=== PATIENT | male | born 1990 | race Caucasian/White ===

== ENCOUNTER 2017-01-09 10:43 | Emergency (ER) | payer OTHER ==
[2017-01-09 11:03] VITALS: BP 115/83
[2017-01-09] MEDS ORDERED: HYDROmorphone 0.5 MG/0.5 ML Syringe IVPUSH ONE (11:26)
[2017-01-09] MEDS ORDERED: Sodium Chloride 0.9% 1,000 ML IV ONE (11:26)
--- NOTE | 2017-01-09 11:32 | EDM.PDOC ---
ED HPI GENERAL MEDICAL PROBLEM - General Chief Complaint: Abdominal Pain Stated Complaint: ABDOMINAL PAIN Time Seen by Provider: 01/09/17 11:09 Source of Information: Reports: Patient History Limitations: Reports: No Limitations - History of Present Illness INITIAL COMMENTS - FREE TEXT/NARRATIVE: Patient is a 26-year-old male presents ED complaining of periumbilical abdominal pain. Patient states it started approximately one week and has progressively got worse over the course. As of recent he was cleaning his belly button out with a Q-tip and noticed some blood present. He denies any recent trauma that may have precipitated this. Nor is any increased swelling, redness, or increased warmth. He has no history of abscesses to his belly button. He denies any abdominal surgery recently. Denies fever/chills, nausea/vomiting, pain with urination, diarrhea, blood in stool, or any additional complaints. Abdominal Pain Score (Numeric/FACES): 6 - Related Data Allergies Allergy/AdvReac Type Severity Reaction Status Date / Time bee stings Allergy Anaphylactic Uncoded 01/09/17 11:00 Shock Home Meds: Home Meds Multivitamin [Txa-Ubacde-Qgxuy] 1 tab PO DAILY 07/28/14 [History] Ciprofloxacin HCl [Cipro] 500 mg PO BID #20 tablet 12/21/14 [Rx] Fish Oil/[place]-3 Fatty Acids [Fish Oil] 1 gm PO DAILY 12/21/14 [History] Doxycycline [Vibramycin] 100 mg PO Q12HR #20 cap 01/09/17 [Rx] Past Medical History - Past Health History Medical/Surgical History: Denies Medical/Surgical History Social & Family History - Tobacco Use Smoking Status *Q: Never Smoker Years of Tobacco use: 1 Second Hand Smoke Exposure: No - Alcohol Use Days Per Week of Alcohol Use: 1 Number of Drinks Per Day: 3 Total Drinks Per Week: 3 - Recreational Drug Use Recreational Drug Use: No ED ROS GENERAL - Review of Systems Review Of Systems: See Below Constitutional: Reports: No Symptoms Respiratory: Reports: No Symptoms Cardiovascular: Reports: No Symptoms GI/Abdominal: Reports: Abdominal Pain. Denies: Constipation, Diarrhea, Nausea, Vomiting : Reports: No Symptoms Musculoskeletal: Reports: No Symptoms Skin: Reports: Other (bloody foul smelling discharge from his belly button for almost 1 wk. ) Neurological: Reports: No Symptoms ED EXAM, GI/ABD - Physical Exam Exam: See Below Exam Limited By: No Limitations General Appearance: Alert, WD/WN, No Apparent Distress Ears: Hearing Grossly Normal Nose: Normal Inspection Throat/Mouth: Normal Voice, No Airway Compromise Neck: Normal Inspection, Supple Respiratory/Chest: No Respiratory Distress, Lungs Clear, Normal Breath Sounds, Chest Non-Tender Cardiovascular: Normal Peripheral Pulses, Regular Rate, Rhythm GI/Abdominal Exam: Normal Bowel Sounds, Soft, No Organomegaly, No Distention, Tender (to the periumbilical region. Bloody foul smelling discharge from his belly button. No increased redness, swelling, or increased warmth noted.) Course - Vital Signs Last Recorded V/S: Last Vital Signs Temp 98.0 F 01/09/17 11:00 Pulse 67 01/09/17 11:00 Resp 16 01/09/17 11:00 BP 115/83 01/09/17 11:00 Pulse Ox 99 01/09/17 11:00 - Orders/Labs/Meds Orders: Active Orders 24 hr Category Date Time Status Peripheral IV Care [RC] . DIRECTED Care 01/09/17 11:25 Active Abdomen Pelvis w Cont [CT] Stat Exams 01/09/17 11:25 Taken Peripheral IV Insertion Adult [OM.PC] Stat Oth 01/09/17 11:25 Ordered Labs: Laboratory Tests 01/09/17 01/09/17 01/09/17 Range/Units 12:00 12:00 13:30 WBC 6.03 (4.23-9.07) K/mm3 RBC 5.02 (4.63-6.08) M/mm3 Hgb 15.3 (13.7-17.5) gm/L Hct 43.9 (40.1-51.0) % MCV 87.5 (79.0-92.2) fl MCH 30.5 (25.7-32.2) pg MCHC 34.9 (32.2-35.5) g/dl RDW Std Deviation 39.3 (35.1-43.9) fL Plt Count 233 (163-337) K/mm3 MPV 11.4 (9.4-12.3) fl Neut % (Auto) 54.9 (34.0-67.9) % Lymph % (Auto) 30.0 (21.8-53.1) % Terry % (Auto) 11.9 (5.3-12.2) % Eos % (Auto) 2.7 (0.8-7.0) Baso % (Auto) 0.5 (0.1-1.2) % Neut # (Auto) 3.31 (1.78-5.38) K/mm3 Lymph # (Auto) 1.81 (1.32-3.57) K/mm3 Terry # (Auto) 0.72 (0.30-0.82) K/mm3 Eos # (Auto) 0.16 (0.04-0.54) K/mm3 Baso # (Auto) 0.03 (0.01-0.08) K/mm3 Sodium 140 (136-145) mEq/L Potassium 4.1 (3.5-5.1) mEq/L Chloride 106 (98-107) mEq/L Carbon Dioxide 24 (21-32) mEq/L Anion Gap 14.1 (5-15) BUN 16 (7-18) mg/dL Creatinine 0.8 (0.7-1.3) mg/dL Est Cr Clr Drug Dosing 147.01 mL/min Estimated GFR (MDRD) > 60 (>60) mL/min BUN/Creatinine Ratio 20.0 H (14-18) Glucose 95 (74-106) mg/dL Calcium 8.9 (8.5-10.1) mg/dL Total Bilirubin 0.5 (0.2-1.0) mg/dL AST 22 (15-37) U/L ALT 45 (16-63) U/L Alkaline Phosphatase 60 (46-116) U/L C-Reactive Protein 0.6 (<1.0) mg/dL Total Protein 7.7 (6.4-8.2) g/dl Albumin 4.0 (3.4-5.0) g/dl Globulin 3.7 gm/dL Albumin/Globulin Ratio 1.1 (1-2) Urine Color Yellow (Yellow) Urine Appearance Slt cloudy H (Clear) Urine pH 6.0 (5.0-8.0) Ur Specific [place] 1.020 (1.005-1.030) Urine Protein Negative (Negative) Urine Glucose (UA) Negative (Negative) Urine Ketones Negative (Negative) Urine Occult Blood Negative (Negative) Urine Nitrite Negative (Negative) Urine Bilirubin Negative (Negative) Urine Urobilinogen 0.2 (0.2-1.0) Ur Leukocyte Esterase Negative (Negative) Urine RBC Not seen (0-5) /hpf Urine WBC 0-5 (0-5) /hpf Ur Epithelial Cells Not seen (0-5) /hpf Urine Bacteria Few (FEW) /hpf Urine Mucus Many H (FEW) /hpf Meds: Medications Discontinued Medications Generic Name Dose Route Start Last Admin Trade Name Freq PRN Reason Stop Dose Admin Diatrizoate Meglum/Diatrizoate Sod 90 ml 01/09/17 13:08 01/09/17 13:18 Gastrografin 37% PO 01/09/17 13:09 90 ml ONETIME ONE Administration Doxycycline Hyclate 200 mg 01/09/17 13:57 01/09/17 14:12 Vibramycin PO 01/09/17 13:58 200 mg ONETIME ONE Administration Hydromorphone HCl 0.5 mg 01/09/17 11:26 01/09/17 12:05 Dilaudid IVPUSH 01/09/17 11:27 0.5 mg ONETIME ONE Administration Sodium Chloride 1,000 mls @ 999 mls/hr 01/09/17 11:26 01/09/17 12:04 Normal Saline IV 01/09/17 12:26 999 mls/hr ONETIME ONE Administration Iopamidol 125 ml 01/09/17 13:08 01/09/17 13:18 Isovue-300 (61%) IVPUSH 01/09/17 13:09 125 ml ONETIME ONE Administration Sodium Chloride 10 ml 01/09/17 11:25 01/09/17 13:19 Saline Flush FLUSH 10 ml ASDIRECTED PRN Administration Keep Vein Open - Re-Assessments/Exams Free Text/Narrative Re-Assessment/Exam: Offered a few options for the patient. I believe this to be a localized area infection involving the umbilicus. Utilized ultrasound while he ED looking for any pus pockets present which none were found. Patient did have pain with utilization of the probe within his belly button. Tenderness is circumferential around the bellybutton. There is a odor to the bloody discharge present. Unclear etiology. No recent trauma noted. Patient is not toxic appearing vital signs are stable. Offered to start the patient on a oral antibiotic and have him follow-up with his PCP the first part of next week. In addition could obtain blood work, ultrasound, or CT the abdomen and pelvis. Patient has elected to proceed with the latter. IV will be established with normal saline 999 mls per hour, and Dilaudid 0.5 mg IVP. Initial labs and studies include CBC, chem 14, UA, CRP, and CT abdomen and pelvis with IV contrast only. 01/09/17 13:53 Labs reviewed: CBC and chem 14 were essentially normal. CRP is 0.6. UA revealed no concerning findings. CT the abdomen and pelvis impression: No acute findings. Right nephrolithiasis. Will treat for localized infection to the umbilicus. Appeared on examination to be a infection to the base of the umbilicus. Ordered doxycycline 200mg PO. Discharge instructions as documented. Departure - Departure Time of Disposition: 13:58 Disposition: Home, Self-Care 01 Condition: Good Clinical Impression: Skin infection - Discharge Information Prescriptions: Doxycycline [Vibramycin] 100 mg PO Q12HR #20 cap Referrals: PCP,None [Primary Care Provider] - Forms: ED Department Discharge, ED Return to Work/School Form Additional Instructions: Take the full course of doxycycline as prescribed. Utilize Tylenol and ibuprofen in alternating fashion for pain. Apply warm compresses to the affected area 6 times daily and 30 minutes in duration. If draining keep covered. Follow-up with PCP at conclusion of therapy to ensure resolution. Return back to the ED for any new or worsening symptoms. - My Orders Last 24 Hours: My Active Orders 01/09/17 11:25 Peripheral IV Care [RC] . DIRECTED Abdomen Pelvis w Cont [CT] Stat Peripheral IV Insertion Adult [OM.PC] Stat - Assessment/Plan Last 24 Hours: My Active Orders 01/09/17 11:25 Peripheral IV Care [RC] . DIRECTED Abdomen Pelvis w Cont [CT] Stat Peripheral IV Insertion Adult [OM.PC] Stat
[2017-01-09] MEDS: Sodium Chloride 0.9% 10 ML Syringe FLUSH PRN ×2 (12:08→13:19)
[2017-01-09] MEDS ORDERED: Diatrizoate Meglumine/Diatrizoate Sodium 37% 120 ML Bottle PO ONE (13:08)
[2017-01-09] MEDS ORDERED: Iopamidol 612 MG/ML 150 ML Bottle IVPUSH ONE (13:08)
[2017-01-09] MEDS ORDERED: Doxycycline 100 MG Cap PO ONE (13:57)
--- NOTE | 2017-01-11 07:57 | CT ---
CT abdomen and pelvis Technique: Multiple axial sections were obtained from above the dome of the diaphragm inferiorly through the pubic symphysis. Intravenous and oral contrast was utilized. Delayed images were obtained through the pelvis. Comparison: Previous noncontrast CT abdomen and pelvis exam performed as a ureteral stone protocol dated 12/21/14. Findings: Visualized lung bases show nothing acute. Liver shows mild fatty infiltration but no focal abnormality is identified. Spleen appears within normal limits. Adrenal glands show no nodule. Pancreas is within normal limits. Gallbladder shows no calcified gallstones. Kidneys show symmetric contrast enhancement without hydronephrosis. Small nonobstructing stone is noted within the right kidney. This small nonobstructing calculus is stable from prior CT exam. Retrocecal appendix is seen which is normal in size. Aorta shows no aneurysmal dilatation. No retroperitoneal adenopathy or mesenteric abnormalities are seen. No pelvic mass or adenopathy is identified. Delayed images show contrast within the distal ureters and within the bladder. No free fluid or inflammatory change is identified. No bowel dilatation is seen. Scattered small mesenteric lymph nodes are seen which are felt to be within normal limits. Bone window settings were reviewed which appear within normal limits for the patient's age. Impression: 1. Small nonobstructing stone within the right kidney which is stable from prior CT exam. 2. Mild fatty infiltration within the liver. 3. Nothing acute is appreciated on CT study of the abdomen and pelvis. Diagnostic code #2 I agree with preliminary report issued by [facility] ([facility] preliminary report dictated on 01/09/17, 2:48 PM Central Time)
== END 2017-01-09 14:15 | disposition home or self-care (01) ==
LOC: JD.ED 10:43
DX: L08.9 Local infection of the skin and subcutaneous tissue, unspecified (principal); Z79.899 Other long term (current) drug therapy; Z91.030 Bee allergy status
CPT/HCPCS: 36415; 74177; 80053; 81001; 85025; 86140; 96361; 96374; 99284; A9270; J1170; J7040; J7050; Q9963; Q9967

== ENCOUNTER 2017-04-04 05:23 | Emergency (ER) | payer OTHER ==
[2017-04-04 05:39] VITALS: BP 120/93
[2017-04-04] MEDS ORDERED: HYDROmorphone 1 MG/ML Syringe IVPUSH ONE ×2 (05:56→06:41)
[2017-04-04] MEDS ORDERED: Ondansetron 4 MG/2 ML SDV IVPUSH ONE (05:56)
[2017-04-04] MEDS ORDERED: Sodium Chloride 0.9% 1,000 ML IV SCH (06:00)
--- NOTE | 2017-04-04 06:01 | EDM.PDOC ---
<Jeremiah Garcia - Last Filed: 04/04/17 07:40> ED HPI GENERAL MEDICAL PROBLEM - General Chief Complaint: Flank Pain Stated Complaint: RIGHT FLANK PAIN Time Seen by Provider: 04/04/17 05:39 - Related Data Allergies Allergy/AdvReac Type Severity Reaction Status Date / Time bee stings Allergy Anaphylactic Uncoded 04/04/17 05:39 Shock Home Meds: Home Meds Multivitamin [Ekm-Nzejmr-Gcszw] 1 tab PO DAILY 07/28/14 [History] Fish Oil/[place]-3 Fatty Acids [Fish Oil] 1 gm PO DAILY 12/21/14 [History] Tamsulosin HCl [Flomax] 0.4 mg PO DAILY #4 cap.er.24h 04/04/17 [Rx] oxyCODONE HCl/Acetaminophen [Percocet 5-325 mg Tablet] 1 - 2 each PO Q4H PRN # 20 tablet 04/04/17 [Rx] Course - Vital Signs Last Recorded V/S: Last Vital Signs Temp 36.2 C 04/04/17 05:35 Pulse 77 04/04/17 05:35 Resp 18 04/04/17 05:35 BP 120/93 H 04/04/17 05:35 Pulse Ox 99 04/04/17 05:35 - Orders/Labs/Meds Orders: Active Orders 24 hr Category Date Time Status Abdomen Pelvis wo Cont [CT] Stat Exams 04/04/17 06:30 Taken Sodium Chloride 0.9% [Normal Saline] 1,000 ml Med 04/04/17 06:00 Active IV ASDIRECTED Medication Orders Sodium Chloride (Normal Saline) 1,000 mls @ 150 mls/hr IV ASDIRECTED GARRY Last Admin: 04/04/17 06:16 Dose: 150 mls/hr Labs: Laboratory Tests 04/04/17 04/04/17 04/04/17 Range/Units 06:05 06:06 06:06 WBC 8.26 (4.23-9.07) K/mm3 RBC 4.93 (4.63-6.08) M/mm3 Hgb 15.3 (13.7-17.5) gm/L Hct 43.3 (40.1-51.0) % MCV 87.8 (79.0-92.2) fl MCH 31.0 (25.7-32.2) pg MCHC 35.3 (32.2-35.5) g/dl RDW Std Deviation 38.8 (35.1-43.9) fL Plt Count 242 (163-337) K/mm3 MPV 10.2 (9.4-12.3) fl Neutrophils % (Manual) 46 (40-60) % Band Neutrophils % 0 (0-10) % Lymphocytes % (Manual) 49 H (20-40) % Atypical Lymphs % 0 % Monocytes % (Manual) 4 (2-10) % Eosinophils % (Manual) 1 (0.8-7.0) % Basophils % (Manual) 0 L (0.2-1.2) Platelet Estimate Adequate RBC Morph Comment Normal Sodium 142 (136-145) mEq/L Potassium 3.6 (3.5-5.1) mEq/L Chloride 106 (98-107) mEq/L Carbon Dioxide 25 (21-32) mEq/L Anion Gap 14.6 (5-15) BUN 19 H (7-18) mg/dL Creatinine 1.0 (0.7-1.3) mg/dL Est Cr Clr Drug Dosing 113.91 mL/min Estimated GFR (MDRD) > 60 (>60) mL/min BUN/Creatinine Ratio 19.0 H (14-18) Glucose 106 (74-106) mg/dL Calcium 8.9 (8.5-10.1) mg/dL Total Bilirubin 0.4 (0.2-1.0) mg/dL AST 20 (15-37) U/L ALT 31 (16-63) U/L Alkaline Phosphatase 66 (46-116) U/L Total Protein 7.9 (6.4-8.2) g/dl Albumin 4.1 (3.4-5.0) g/dl Globulin 3.8 gm/dL Albumin/Globulin Ratio 1.1 (1-2) Urine Color Yellow (Yellow) Urine Appearance Slt cloudy H (Clear) Urine pH 5.5 (5.0-8.0) Ur Specific [place] > or = 1.030 (1.005-1.030) Urine Protein Trace H (Negative) Urine Glucose (UA) Negative (Negative) Urine Ketones Negative (Negative) Urine Occult Blood 3+ H (Negative) Urine Nitrite Negative (Negative) Urine Bilirubin 1+ H (Negative) Urine Urobilinogen 0.2 (0.2-1.0) Ur Leukocyte Esterase Negative (Negative) Urine RBC 20-30 H (0-5) /hpf Urine WBC 0-5 (0-5) /hpf Ur Epithelial Cells Not seen (0-5) /hpf Urine Bacteria Few (FEW) /hpf Urine Mucus Many H (FEW) /hpf Meds: Medications Generic Name Dose Route Start Last Admin Trade Name Freq PRN Reason Stop Dose Admin Sodium Chloride 1,000 mls @ 150 mls/hr 04/04/17 06:00 04/04/17 06:16 Normal Saline IV 150 mls/hr ASDIRECTED GARRY Administration Discontinued Medications Generic Name Dose Route Start Last Admin Trade Name Freq PRN Reason Stop Dose Admin Fentanyl 50 mcg 04/04/17 07:42 Sublimaze IVPUSH 04/04/17 07:43 ONETIME ONE Hydromorphone HCl 1 mg 04/04/17 05:56 04/04/17 06:18 Dilaudid IVPUSH 04/04/17 05:57 1 mg ONETIME ONE Administration Hydromorphone HCl 1 mg 04/04/17 06:41 04/04/17 06:46 Dilaudid IVPUSH 04/04/17 06:42 1 mg ONETIME ONE Administration Ketorolac Tromethamine 30 mg 04/04/17 07:01 04/04/17 07:08 Toradol IVPUSH 04/04/17 07:02 30 mg ONETIME STA Administration Ondansetron HCl 4 mg 04/04/17 05:56 04/04/17 06:16 Zofran IVPUSH 04/04/17 05:57 4 mg ONETIME ONE Administration Tamsulosin HCl 0.4 mg 04/04/17 07:02 04/04/17 07:10 Flomax PO 04/04/17 07:03 0.4 mg ONETIME ONE Administration - Re-Assessments/Exams Free Text/Narrative Re-Assessment/Exam: 04/04/17 07:40 care has been assumed from Dr. Romano at change of shift. CT of the abdomen and pelvis is now been completed. It reveals a normal-appearing liver spleen pancreas and small and large bowels. It is moderate hydronephrosis of the right kidney in comparison to the left. There is moderate dilatation of the entire ureter on the right side down to the UVJ where there is a partially 2.6 mm stone wedged in this area. Patient is still having pain which she reports as 7-8 out of 10. No further nausea or vomiting. We'll give him fentanyl 50 g IV to further alleviate pain. Plan will be to discharge him home on Percocet 5/325 milligram tablets one or 2 every 4 hours as needed for pain relief. Note will also be provided to excuse him from the workplace today and tomorrow. Departure - Departure Disposition: Home, Self-Care 01 Condition: Fair Clinical Impression: Kidney stone on right side - Discharge Information Prescriptions: oxyCODONE HCl/Acetaminophen [Percocet 5-325 mg Tablet] 1 - 2 each PO Q4H PRN # 20 tablet PRN Reason: pain relief. Tamsulosin HCl [Flomax] 0.4 mg PO DAILY #4 cap.er.24h Referrals: Aidan Lord PA-C [Primary Care Provider] - Forms: ED Department Discharge, ED Return to Work/School Form Additional Instructions: Evaluation in the emergency room today in regards to acute onset of severe right flank and lower abdominal pain. This awoke him from sleep. History of previous kidney stones. Urinalysis done here showed 3+ blood. CT of the abdomen confirms a kidney stone approximately 2.6 mm in size at the lower portion of the ureter where it enters the urinary bladder. Stone has approximately 1/2 inch to travel before with into the urinary bladder and you would be pain free. This is likely to happen within the next 48 hours. Treatment is to drink plenty of fluids. Continue Flomax 0.4 mg once daily. Next tablet would be due tomorrow morning. Percocet tablets 08/26/24 one or 2 every 4-6 hours needed for pain relief. Off work today and tomorrow. Strain urine until stone has identified to the past at which time he would not need any further Flomax. - My Orders Last 24 Hours: My Active Orders 04/04/17 06:00 Sodium Chloride 0.9% [Normal Saline] 1,000 ml IV ASDIRECTED 04/04/17 06:30 Abdomen Pelvis wo Cont [CT] Stat - Assessment/Plan Last 24 Hours: My Active Orders 04/04/17 06:00 Sodium Chloride 0.9% [Normal Saline] 1,000 ml IV ASDIRECTED 04/04/17 06:30 Abdomen Pelvis wo Cont [CT] Stat <Jez Romano - Last Filed: 04/04/17 07:50> ED HPI GENERAL MEDICAL PROBLEM - General Source of Information: Reports: Patient, RN Notes Reviewed, Significant Other ( Girlfriend) History Limitations: Reports: No Limitations - History of Present Illness INITIAL COMMENTS - FREE TEXT/NARRATIVE: The patient states that he was woken with right flank pain radiating to his right groin around 05:10 this morning. He states that he has dysuria, urinary frequency, and urinary urgency. No recent fever. No nausea or vomiting. The patient reports no prior similar symptoms, including when he has had kidney stones in the past. The patient's PCP is Aidan Lord. Right Flank Pain Score (Numeric/FACES): 10 Past Medical History Genitourinary History: Reports: Renal Calculus Endocrine/Metabolic History: Reports: Obesity/BMI 30+ - Past Surgical History HEENT Surgical History: Reports: Oral Surgery ([place] teeth extraction), Tonsillectomy Musculoskeletal Surgical History: Reports: Arthroscopic Knee (bilateral) Social & Family History - Tobacco Use Smoking Status *Q: Never Smoker Years of Tobacco use: 1 Second Hand Smoke Exposure: No - Caffeine Use Caffeine Use: Reports: None - Alcohol Use Alcohol Use History: Yes Days Per Week of Alcohol Use: 1 Number of Drinks Per Day: 3 Total Drinks Per Week: 3 Alcohol Use Frequency: Socially - Recreational Drug Use Recreational Drug Use: No - Living Situation & Occupation Living situation: Reports: Single, with Significant Other (Girlfriend) 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) ED ROS GENERAL - Review of Systems Review Of Systems: See Below Constitutional: Reports: No Symptoms HEENT: Reports: Other (Viral URI symptoms) Respiratory: Reports: No Symptoms Cardiovascular: Reports: No Symptoms Endocrine: Reports: No Symptoms GI/Abdominal: Reports: No Symptoms : Reports: No Symptoms Musculoskeletal: Reports: No Symptoms Skin: Reports: No Symptoms Neurological: Reports: No Symptoms Psychiatric: Reports: No Symptoms Hematologic/Lymphatic: Reports: No Symptoms Immunologic: Reports: No Symptoms ED EXAM, RENAL/ - Physical Exam Exam: See Below Exam Limited By: No Limitations General Appearance: Alert, WD/WN, Moderate Distress Eye Exam: Bilateral Eye: Normal Inspection Ears: Normal External Exam, Hearing Grossly Normal Nose: Normal Inspection, No Blood Throat/Mouth: Normal Inspection, Normal Lips, Normal Voice, No Airway Compromise Head: Atraumatic, Normocephalic Neck: Normal Inspection, Full Range of Motion Respiratory/Chest: No Respiratory Distress, Lungs Clear, Normal Breath Sounds, No Accessory Muscle Use Cardiovascular: Normal Peripheral Pulses, Regular Rate, Rhythm, No Edema, No Gallop, No JVD, No Murmur, No Rub GI/Abdominal: Normal Bowel Sounds, Soft, No Organomegaly, No Distention, No Abnormal Bruit, No Mass, Tender (Minimal, right lower quadrant. Nontender elsewhere.), Other (Obese) (Male) Exam: Deferred Rectal (Males) Exam: Deferred Back Exam: Normal Inspection, Full Range of Motion, CVA Tenderness (R) (Severe) . No: CVA Tenderness (L) Extremities: Normal Inspection, Normal Range of Motion, No Pedal Edema, Normal Capillary Refill Neurological: Alert, Oriented, Normal Cognition, No Motor/Sensory Deficits Psychiatric: Normal Affect Skin Exam: Warm, Dry, Intact, Normal Color, No Rash Course - Orders/Labs/Meds Labs: Laboratory Tests 04/04/17 04/04/17 04/04/17 Range/Units 06:05 06:06 06:06 WBC 8.26 (4.23-9.07) K/mm3 RBC 4.93 (4.63-6.08) M/mm3 Hgb 15.3 (13.7-17.5) gm/L Hct 43.3 (40.1-51.0) % MCV 87.8 (79.0-92.2) fl MCH 31.0 (25.7-32.2) pg MCHC 35.3 (32.2-35.5) g/dl RDW Std Deviation 38.8 (35.1-43.9) fL Plt Count 242 (163-337) K/mm3 MPV 10.2 (9.4-12.3) fl Neutrophils % (Manual) 46 (40-60) % Band Neutrophils % 0 (0-10) % Lymphocytes % (Manual) 49 H (20-40) % Atypical Lymphs % 0 % Monocytes % (Manual) 4 (2-10) % Eosinophils % (Manual) 1 (0.8-7.0) % Basophils % (Manual) 0 L (0.2-1.2) Platelet Estimate Adequate RBC Morph Comment Normal Sodium 142 (136-145) mEq/L Potassium 3.6 (3.5-5.1) mEq/L Chloride 106 (98-107) mEq/L Carbon Dioxide 25 (21-32) mEq/L Anion Gap 14.6 (5-15) BUN 19 H (7-18) mg/dL Creatinine 1.0 (0.7-1.3) mg/dL Est Cr Clr Drug Dosing 113.91 mL/min Estimated GFR (MDRD) > 60 (>60) mL/min BUN/Creatinine Ratio 19.0 H (14-18) Glucose 106 (74-106) mg/dL Calcium 8.9 (8.5-10.1) mg/dL Total Bilirubin 0.4 (0.2-1.0) mg/dL AST 20 (15-37) U/L ALT 31 (16-63) U/L Alkaline Phosphatase 66 (46-116) U/L Total Protein 7.9 (6.4-8.2) g/dl Albumin 4.1 (3.4-5.0) g/dl Globulin 3.8 gm/dL Albumin/Globulin Ratio 1.1 (1-2) Urine Color Yellow (Yellow) Urine Appearance Slt cloudy H (Clear) Urine pH 5.5 (5.0-8.0) Ur Specific [place] > or = 1.030 (1.005-1.030) Urine Protein Trace H (Negative) Urine Glucose (UA) Negative (Negative) Urine Ketones Negative (Negative) Urine Occult Blood 3+ H (Negative) Urine Nitrite Negative (Negative) Urine Bilirubin 1+ H (Negative) Urine Urobilinogen 0.2 (0.2-1.0) Ur Leukocyte Esterase Negative (Negative) Urine RBC 20-30 H (0-5) /hpf Urine WBC 0-5 (0-5) /hpf Ur Epithelial Cells Not seen (0-5) /hpf Urine Bacteria Few (FEW) /hpf Urine Mucus Many H (FEW) /hpf - Re-Assessments/Exams Free Text/Narrative Re-Assessment/Exam: 04/04/17 06:32 The patient's urinalysis is nitrate negative, leukocyte esterase negative, 3+ occult blood with 20-30 RBCs, 0-5 WBCs, and few bacteria. This is consistent with a kidney stone, and not really consistent with a UTI. I have ordered a CT scan of the abdomen and pelvis without IV contrast, to evaluate for kidney stone. 04/04/17 07:[address] Garcia, and care of the patient turned over to him at this time, for change of shift. Results of the CT scan are pending. Departure - Departure Time of Disposition: 07:50
[2017-04-04] MEDS ORDERED: Ketorolac 30 MG/ML SDV IVPUSH STA (07:01)
[2017-04-04] MEDS ORDERED: Tamsulosin 0.4 MG Cap.ER PO ONE (07:02)
[2017-04-04] MEDS ORDERED: fentaNYL 100 MCG/2 ML SDV IVPUSH ONE (07:42)
--- NOTE | 2017-04-05 07:53 | CT ---
CT abdomen and pelvis Technique: Multiple axial sections were obtained from above the kidneys inferiorly through the pubic symphysis. Intravenous and oral contrast was not utilized. Study has been performed as a ureteral stone protocol. Comparison: Prior CT abdomen and pelvis exam of 01/09/17. Findings: Right ureter is dilated. This finding is caused by a 2.8 mm obstructing stone within the distal right ureter. This ureteral stone occurs slightly proximal to the UVJ. No renal calculi are seen. No other ureteral stones are seen. Visualized lung bases show nothing acute. Noncontrast appearance of the visualized liver and spleen appear within normal limits. Adrenal glands show no nodule. Pancreas appears within normal limits. Gallbladder contains no calcified gallstones. Aorta shows no aneurysmal dilatation. No retroperitoneal adenopathy or mesenteric abnormalities are seen. Pancreas is within normal limits. Appendix is visualized and appears normal. No pelvic mass or adenopathy is seen. No free fluid or inflammatory changes noted. Bowel gas pattern appears normal. Bone window settings were reviewed which appear within normal limits for the patient's age. Impression: 1. Right ureteral dilatation caused by an obstructing 2.8 mm stone within the distal right ureter slightly proximal to the UVJ. 2. Other normal findings as noted above. Diagnostic code #3 Agree with preliminary report issued by [facility] ([facility] preliminary report dictated on 04/04/17, 8:45 AM Central Time)
== END 2017-04-04 08:40 | disposition home or self-care (01) ==
LOC: JD.ED 05:23
DX: N13.2 Hydronephrosis with renal and ureteral calculous obstruction (principal); Z91.030 Bee allergy status; Z79.899 Other long term (current) drug therapy
CPT/HCPCS: 36415; 74176; 80053; 81001; 85025; 96361; 96374; 96375; 99284; A9270; J1170; J1885; J2405; J3010; J7040

== ENCOUNTER 2017-06-17 10:19 | Day surgery (SDC) | payer OTHER ==
--- NOTE | 2017-06-16 09:35 | PCM.PREANE ---
Preanesthetic Assessment - Anesthesia/Transfusion/Family Hx Intubation History: Unknown - Review of Systems Pulmonary: No Symptoms (asthma) Other: Reports: Thyroid Problems (total thyroidectomy) - Physical Assessment NPO Status Date: 06/16/17 Height: 1.75 m Mental Status: Alert & Oriented x3 - Lab Values: Laboratory Last Values MRSA (PCR) Negative 06/04/17 11:19 - Allergies Allergies/Adverse Reactions: Allergies Allergy/AdvReac Type Severity Reaction Status Date / Time bee stings Allergy Anaphylactic Uncoded 04/04/17 05:39 Shock - Anesthesia Plan Pre-Op Medication Ordered: None - Acknowledgements Anesthesia Type Planned: General Anesthesia Pt an Appropriate Candidate for the Planned Anesthesia: Yes Alternatives and Risks of Anesthesia Discussed w Pt/Guardian: Yes Pt/Guardian Understands and Agrees with Anesthesia Plan: Yes PreAnesthesia Questionnaire - Past Health History Medical/Surgical History: Denies Medical/Surgical History Genitourinary History: Reports: Renal Calculus Musculoskeletal History: Reports: Fracture Endocrine/Metabolic History: Reports: Obesity/BMI 30+ - Past Surgical History HEENT Surgical History: Reports: Oral Surgery ([place] teeth extraction), Tonsillectomy Musculoskeletal Surgical History: Reports: Arthroscopic Knee (bilateral) - SUBSTANCE USE Smoking Status *Q: Never Smoker Second Hand Smoke Exposure: No Days Per Week of Alcohol Use: 1 Number of Drinks Per Day: 3 Total Drinks Per Week: 3 Recreational Drug Use History: No - HOME MEDS Home Medications: Home Meds Multivitamin [Hmh-Gwfuzz-Iewcp] 1 tab PO DAILY 07/28/14 [History] Fish Oil/[place]-3 Fatty Acids [Fish Oil] 1 gm PO DAILY 12/21/14 [History] Tamsulosin HCl [Flomax] 0.4 mg PO DAILY #4 cap.er.24h 04/04/17 [Rx] oxyCODONE HCl/Acetaminophen [Percocet 5-325 mg Tablet] 1 - 2 each PO Q4H PRN # 20 tablet 04/04/17 [Rx] - CURRENT (IN HOUSE) MEDS Current Meds: Current Medications Lactated Ringer's (Ringers, Lactated) 1,000 mls @ 125 mls/hr IV ASDIRECTED GARRY Stop: 06/17/17 23:00 Lidocaine/Sodium Bicarbonate (Buffered Lidocaine 1% In Ns 8.4%) 0.25 ml IDERM ONETIME PRN PRN Reason: Prior to IV Start Stop: 06/17/17 18:00 Sodium Chloride (Saline Flush) 10 ml FLUSH ASDIRECTED PRN PRN Reason: Keep Vein Open Stop: 06/17/17 18:00
[~2017-06-17 10:19] MED LIST: Dexamethasone 4 MG/ML 5 ML MDV ONE; Ketorolac 30 MG/ML SDV ONE; Lactated Ringers 1,000 ML IV SCH; Lactated Ringers 1,000 ML ONE; Lidocaine 1% 4 ML ONE; Lidocaine 1%/Sod Bicarbonate in NS 8.4% 1 ML Syringe IDERM PRN; Midazolam 1 MG/ML 2 ML SDV ONE; Ondansetron 4 MG/2 ML SDV ONE; Propofol 200 MG/20 ML SDV ONE; Sodium Chloride 0.9% 10 ML Syringe FLUSH PRN; ceFAZolin 1 GM Vial ONE; fentaNYL 250 MCG/5 ML SDV ONE
--- NOTE | 2017-06-17 10:59 | PCM.PREANE ---
Preanesthetic Assessment - Procedure Proposed Procedure: Left KVA with partial medial menisectomy - Anesthesia/Transfusion/Family Hx Anesthesia History: Prior Anesthesia Without Reaction Family History of Anesthesia Reaction: No Transfusion History: No Prior Transfusion(s) Intubation History: Unknown - Review of Systems General: No Symptoms Pulmonary: Other (asthma as a kid but has not used an inhaler in years ) Cardiovascular: No Symptoms Gastrointestinal: No Symptoms Neurological: No Symptoms Other: Reports: None - Physical Assessment NPO Status Date: 06/16/17 NPO Status Time: 20:00 O2 Sat by Pulse Oximetry: 95 Respiratory Rate: 16 Vital Signs: Last Vital Signs Temp 36.8 C 06/17/17 10:30 Pulse 72 06/17/17 10:30 Resp 16 06/17/17 10:30 BP 111/66 06/17/17 10:30 Pulse Ox 95 06/17/17 10:30 Height: 1.75 m Weight: 112.491 kg ASA Class: 2 Mental Status: Alert & Oriented x3 Airway Class: Mallampati = 1 Dentition: Reports: Normal Dentition Thyro-Mental Finger Breadths: 3 Mouth Opening Finger Breadths: 3 ROM/Head Extension: Full Lungs: Clear to Auscultation, Normal Respiratory Effort Cardiovascular: Regular Rate, Regular Rhythm - Lab Values: Laboratory Last Values MRSA (PCR) Negative 06/04/17 11:19 - Allergies Allergies/Adverse Reactions: Allergies Allergy/AdvReac Type Severity Reaction Status Date / Time bee stings Allergy Anaphylactic Uncoded 06/16/17 13:37 Shock - Blood Blood Available: No Product(s) Available: None - Anesthesia Plan Pre-Op Medication Ordered: None - Acknowledgements Anesthesia Type Planned: General Anesthesia (LMA ) Pt an Appropriate Candidate for the Planned Anesthesia: Yes Alternatives and Risks of Anesthesia Discussed w Pt/Guardian: Yes Pt/Guardian Understands and Agrees with Anesthesia Plan: Yes PreAnesthesia Questionnaire - Past Health History Medical/Surgical History: Denies Medical/Surgical History Cardiovascular History: Reports: None Respiratory History: Reports: Asthma Gastrointestinal History: Reports: Celiac Disease Genitourinary History: Reports: None, Renal Calculus 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 Musculoskeletal History: Reports: Fracture, Other (See Below) Other Musculoskeletal History: left knee meniscus tear Neurological History: Reports: None Psychiatric History: Reports: None Endocrine/Metabolic History: Reports: Obesity/BMI 30+ Hematologic History: Reports: None Immunologic History: Reports: None Oncologic (Cancer) History: Reports: None Dermatologic History: Reports: None - Past Surgical History Head Surgeries/Procedures: Reports: None HEENT Surgical History: Reports: Oral Surgery, Tonsillectomy Cardiovascular Surgical History: Reports: None Respiratory Surgical History: Reports: None GI Surgical History: Reports: None Female Surgical History: Reports: None Male Surgical History: Reports: None Endocrine Surgical History: Reports: None Neurological Surgical History: Reports: None Musculoskeletal Surgical History: Reports: Arthroscopic Knee Oncologic Surgical History: Reports: None Dermatological Surgical History: Reports: None - SUBSTANCE USE Smoking Status *Q: Current Some Day Smoker Tobacco Use Within Last Twelve Months: Snuff/Dip (last used 2 days ago) Second Hand Smoke Exposure: No Days Per Week of Alcohol Use: 1 Number of Drinks Per Day: 3 Total Drinks Per Week: 3 Recreational Drug Use History: No - HOME MEDS Home Medications: Home Meds oxyCODONE HCl/Acetaminophen [Percocet 5-325 mg Tablet] 1 - 2 each PO Q4H PRN # 20 tablet 04/04/17 [Rx] Acetaminophen/HYDROcodone [[place] 325-5 MG] 1 - 2 tab PO Q6H PRN #30 tablet 06/17 [Rx] Aspirin 325 mg PO BID #84 tab 06/17/17 [Rx] - CURRENT (IN HOUSE) MEDS Current Meds: Current Medications Lactated Ringer's (Ringers, Lactated) 1,000 mls @ 125 mls/hr IV ASDIRECTED GARRY Stop: 06/17/17 23:00 Lidocaine/Sodium Bicarbonate (Buffered Lidocaine 1% In Ns 8.4%) 0.25 ml IDERM ONETIME PRN PRN Reason: Prior to IV Start Stop: 06/17/17 18:00 Sodium Chloride (Saline Flush) 10 ml FLUSH ASDIRECTED PRN PRN Reason: Keep Vein Open Stop: 06/17/17 18:00 Discontinued Medications Cefazolin Sodium (Ancef) Confirm Administered Dose 2 gm .ROUTE .STK-MED ONE Stop: 06/17/17 07:20 Dexamethasone (Dexamethasone) Confirm Administered Dose 20 mg .ROUTE .STK-MED ONE Stop: 06/17/17 07:20 Fentanyl (Sublimaze) Confirm Administered Dose 250 mcg .ROUTE .STK-MED ONE Stop: 06/17/17 07:20 Lidocaine HCl (Xylocaine-Mpf 1%) Confirm Administered Dose 4 mls @ as directed .ROUTE .STK-MED ONE Stop: 06/17/17 07:20 Lactated Ringer's (Ringers, Lactated) Confirm Administered Dose 1,000 mls @ as directed .ROUTE .STK-MED ONE Stop: 06/17/17 07:20 Ketorolac Tromethamine (Toradol) Confirm Administered Dose 30 mg .ROUTE .ST- MED ONE Stop: 06/17/17 07:20 Midazolam HCl (Versed 1 Mg/Ml) Confirm Administered Dose 2 mg .ROUTE .STK-MED ONE Stop: 06/17/17 07:20 Ondansetron HCl (Zofran) Confirm Administered Dose 4 mg .ROUTE .STK-MED ONE Stop: 06/17/17 07:20 Propofol (Diprivan 20 Ml) Confirm Administered Dose 200 mg .ROUTE .STK-MED ONE Stop: 06/17/17 07:20
[2017-06-17] MEDS ORDERED: Bupivacaine 0.25% 10 ML SDV ONE (11:48)
[2017-06-17] MEDS ORDERED: Ondansetron 4 MG/2 ML SDV IVPUSH PRN (12:13)
[2017-06-17] MEDS ORDERED: diphenhydrAMINE 50 MG/ML SDV IVPUSH PRN (12:13)
[2017-06-17] MEDS ORDERED: ePHEDrine 50 MG/ML SDV IVPUSH PRN (12:13)
[2017-06-17] MEDS ORDERED: Midazolam 1 MG/ML 2 ML SDV IVPUSH PRN (12:13)
[2017-06-17] MEDS ORDERED: Propofol 200 MG/20 ML SDV ONE (12:18)
[2017-06-17] MEDS ORDERED: EPINEPHrine 1 MG/ML 30 ML MDV ONE (12:30)
--- NOTE | 2017-06-17 13:16 | PCM.POSTAN ---
POST ANESTHESIA ASSESSMENT - MENTAL STATUS Mental Status: Alert - VITAL SIGNS Pulse Rate: 97 SaO2: 97 (2LPM nasal cannula) Resp Rate: 19 Blood Pressure: 105/52 Temperature: 36.8 C - RESPIRATORY Respiratory Status: Respiratory Rate WNL, Airway Patent, O2 Saturation Stable, Supplemental Oxygen - CARDIOVASCULAR CV Status: Pulse Rate WNL, Blood Pressure Stable - GASTROINTESTINAL GI Status: No Symptoms - POST OP HYDRATION Hydration Status: Adequate & Stable
[2017-06-17] MEDS: fentaNYL 100 MCG/2 ML SDV IVPUSH PRN ×2 (13:23→13:39)
[2017-06-17] MEDS ORDERED: HYDROmorphone 0.5 MG/0.5 ML Syringe IVPUSH PRN (13:41)
[2017-06-17] MEDS ORDERED: Acetaminophen/HYDROcodone 325-5 MG Tab PO PRN (13:43)
[2017-06-17] MEDS ORDERED: Albuterol 0.083% 2.5 MG/3 ML Neb Soln NEB STA (14:10)
--- NOTE | 2017-06-17 14:19 | PCM48HPAN ---
Post Anesthesia Note - EVALUATION WITHIN 48HRS OF ANESTHETIC Vital Signs in Normal Range: Yes Patient Participated in Evaluation: Yes Respiratory Function Stable: Yes Airway Patent: Yes Cardiovascular Function Stable: Yes Hydration Status Stable: Yes Pain Control Satisfactory: Yes Nausea and Vomiting Control Satisfactory: Yes Mental Status Recovered: Yes
[2017-06-17 15:42] VITALS: BP 110/75
--- NOTE | 2017-06-20 21:40 | PCM.OPNOTE ---
- General Post-Op/Procedure Note Date of Surgery/Procedure: 06/17/17 Operative Procedure(s): left knee video arthroscopy with partial medial meniscectomy Pre Op Diagnosis: left knee medial meniscus tear Post-Op Diagnosis: Same Anesthesia Technique: General LMA, Local Primary Surgeon: Lauri Henry Anesthesia Provider: Shreya Solares Verification Clerk: Maria Luisa Cowan in mLs: 5 Complications: None Condition: Good
--- NOTE | 2017-06-20 22:36 | OR ---
DATE OF OPERATION: 06/17/2017 SURGEON: Lauri Henry MD OPERATION PERFORMED: Left knee video arthroscopy with partial medial meniscectomy. PREOPERATIVE DIAGNOSIS: Left knee medial meniscus tear. POSTOPERATIVE DIAGNOSIS: Left knee medial meniscus tear. ANESTHESIA TECHNIQUE: General LMA with local. ANESTHESIA PROVIDER: Shreya Solares CRNA. LAST PULLER: Maria Luisa Cowan PA-C ESTIMATED BLOOD LOSS: 5 mL. COMPLICATIONS: None. CONDITION: Stable. DESCRIPTION OF PROCEDURE: The patient was identified in the preop holding area. Proper site was marked and identified by the surgeon. The patient was taken back to the operating theater, where after adequate anesthesia, the patient's right lower extremity was placed in a well leg cradenas. The left lower extremity had a nonsterile tourniquet applied and was then placed in a C-clamp cardenas. The foot of the bed was then lowered. Left lower extremity was then sterilely prepped and draped in the usual sterile fashion. OR time-out was performed. The patient received 2 g IV Ancef. The left lower extremity was then exsanguinated and tourniquet was insufflated to 250 mmHg. Standard anterior lateral portal incision was made and the scope trocar was introduced. Patellofemoral joint showed only grade 1 chondromalacia. There were no loose or foreign bodies noted. Attention was turned to the medial compartment. Anterior medial portal was created with the use of a spinal needle. At this time, a direct visualization of the medial compartment showed grade 1/2 chondromalacia of the femoral condyle as well as grade 3 chondromalacia of the very posterior portion of the medial tibial plateau. The patient was noted to have degenerative tear of the posterior third of the horn of the medial meniscus. At this time, the posterior third of the medial meniscus was then removed almost all the way to the attachment of the capsule as it was grossly unstable with degenerative tear. At this time, all excess fibers and loose fibers were removed. At this time, attention was turned to the notch. The patient was found have an intact ACL on the notch. Lateral compartment showed grade 1 chondromalacia, but otherwise no meniscal tear. At this time, excess saline was drained from the knee. A 3-0 nylon simple suture was used for closure of the skin and the patient had a sterile soft dressing applied. The patient tolerated the procedure well and sent to PACU in stable condition. ANESTHESIA: MMODAL /[id number]
== END 2017-06-17 15:33 | disposition home or self-care (01) ==
LOC: JD.SDS 10:19
PROVIDERS: ATTEND Orthopaedic Surgery
DX: S83.242A Other tear of medial meniscus, current injury, left knee, initial encounter (principal); Z91.030 Bee allergy status; Z79.899 Other long term (current) drug therapy; Z72.0 Tobacco use; X58.XXXA Exposure to other specified factors, initial encounter
CPT/HCPCS: 29881; 87641; 94640; A9270; J0171; J0690; J1100; J1170; J1885; J2250; J2405; J3010; J7120; J2704

== ENCOUNTER 2017-12-12 16:59 | Emergency (ER) | payer OTHER ==
[2017-12-12 17:14] VITALS: BP 137/88
--- NOTE | 2017-12-12 18:02 | EDM.PDOC ---
ED HPI GENERAL MEDICAL PROBLEM - General Chief Complaint: Lower Extremity Injury/Pain Stated Complaint: ROLLED OVER ON RIGHT FOOT/SWOLLEN Time Seen by Provider: 12/12/17 17:39 Source of Information: Reports: Patient History Limitations: Reports: No Limitations - History of Present Illness INITIAL COMMENTS - FREE TEXT/NARRATIVE: 27-year-old male presents for evaluation and treatment of an injury to the right ankle. Patient reports yesterday he was playing softball when he rolled his ankle. States that he inverted the right ankle. Reports hearing a pop. Since then he has had pain with ambulation is appreciated swelling and bruising to the right ankle. Primarily has pain to the right lateral malleolus. Reports he has had numerous ankle sprains in the past. Has been using crutches he had at home to help with ambulation. Duration: Day(s): (2) Right Ankle Pain Score (Numeric/FACES): 4 - Related Data Allergies Allergy/AdvReac Type Severity Reaction Status Date / Time bee stings Allergy Anaphylactic Uncoded 06/17/17 10:58 Shock Home Meds: Home Meds Fish Oil/[place]-3 Fatty Acids [Fish Oil] 1 cap PO DAILY 12/12/17 [History] Multivitamin [Multivitamins] 1 tab PO DAILY 12/12/17 [History] Past Medical History - Past Health History Medical/Surgical History: Denies Medical/Surgical History Cardiovascular History: Reports: None Respiratory History: Reports: Asthma, Sleep Apnea Gastrointestinal History: Reports: Celiac Disease Genitourinary History: Reports: Renal Calculus [employer]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 Musculoskeletal History: Reports: Fracture Other Musculoskeletal History: Thumb, arm, fingers Neurological History: Reports: Concussion Psychiatric History: Reports: None Endocrine/Metabolic History: Reports: Obesity/BMI 30+ Hematologic History: Reports: None Immunologic History: Reports: None Oncologic (Cancer) History: Reports: None Dermatologic History: Reports: None - Past Surgical History Head Surgeries/Procedures: Reports: None HEENT Surgical History: Reports: Oral Surgery, Tonsillectomy Cardiovascular Surgical History: Reports: None Endocrine Surgical History: Reports: None Musculoskeletal Surgical History: Reports: Other (See Below) Other Musculoskeletal Surgeries/Procedures:: ACL, MCL, Mensiscus repairs Oncologic Surgical History: Reports: None Social & Family History - Tobacco Use Used Tobacco, but Quit: No Second Hand Smoke Exposure: No - Caffeine Use Caffeine Use: Reports: Soda - Alcohol Use Days Per Week of Alcohol Use: 1 Number of Drinks Per Day: 2 Total Drinks Per Week: 2 - Recreational Drug Use Recreational Drug Use: No - Living Situation & Occupation Living situation: Reports: Single, with Significant Other (Girlfriend) 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 Denies: Wound Neurological: Denies: Numbness, Tingling ED EXAM, GENERAL - Physical Exam Exam: See Below Exam Limited By: No Limitations General Appearance: Alert, WD/WN, No Apparent Distress Respiratory/Chest: No Respiratory Distress Cardiovascular: Normal Peripheral Pulses, Regular Rate, Rhythm Peripheral Pulses: 2+: Posterior Tibial (L), Posterior Tibial (R), Dorsalis Pedis (L), Dorsalis Pedis (R) Extremities: Normal Capillary Refill, Limited Range of Motion (pain with dorsiflexion, plantarflexion, inversion and eversion), Other (tenderness to the anterior talofibular ligament and posterior talofibular ligament; no tenderness to the dorsal right foot). No: Increased Warmth Neurological: Alert, Oriented, Normal Cognition Psychiatric: Normal Affect, Normal Mood Skin Exam: Warm, Dry, Normal Color, Ecchymosis (right lateral malleolus distal ) . No: Increased Warmth Course - Vital Signs Last Recorded V/S: Last Vital Signs Temp 98.2 F 12/12/17 17:11 Pulse 106 H 12/12/17 17:11 Resp 20 12/12/17 17:11 BP 137/88 12/12/17 17:11 Pulse Ox 100 12/12/17 17:11 - Radiology Interpretation Free Text/Narrative:: X-ray of the right ankle shows no acute fractures or dislocations. - Re-Assessments/Exams Free Text/Narrative Re-Assessment/Exam: 12/12/17 17:59 Reviewed the x-ray results with the patient. Appears to be an ankle sprain. I' ll have him do an Robert bandage, crutches, ice, elevation and follow-up with orthopedics. Discharge instructions as documented. Departure - Departure Time of Disposition: 18:00 Disposition: Home, Self-Care 01 Condition: Good Clinical Impression: Ankle sprain - Discharge Information *PRESCRIPTION DRUG MONITORING PROGRAM REVIEWED*: No *COPY OF PRESCRIPTION DRUG MONITORING REPORT IN PATIENT LAURA: No Instructions: Ankle Sprain, [id number] Referrals: Aidan Lord PA-C [Primary Care Provider] - Lauri Henry MD [Physician] - Forms: ED Department Discharge Additional Instructions: [id number] Tylenol and Motrin as needed for pain. Ice and elevate the ankle as much as you're able to. Crutches and off ankle. Follow-up with orthopedics. This week or early next week. Recommend Dr. Henry at the [facility]. Call [phone] to schedule with him. please return to the ER if your symptoms change or worsen.
--- NOTE | 2017-12-15 09:37 | CR ---
Right ankle: Four views of the right ankle were obtained. Comparison: No prior ankle study. Ankle mortise is symmetric. No fracture, dislocation or other bony abnormality is seen. Impression: 1. No abnormality is seen on right ankle exam. Diagnostic code #1
== END 2017-12-12 18:23 | disposition home or self-care (01) ==
LOC: JD.ED 16:59
DX: S93.401A Sprain of unspecified ligament of right ankle, initial encounter (principal); J45.909 Unspecified asthma, uncomplicated; Y93.64 Activity, baseball; Z91.030 Bee allergy status; X50.1XXA Overexertion from prolonged static or awkward postures, initial encounter
CPT/HCPCS: 73610-26-RT; 73610-RT; 99283

== ENCOUNTER 2019-11-06 19:28 | Emergency (ER) | payer BC, OTHER ==
[2019-11-06 19:44] VITALS: BP 131/92; PULSE 82
[2019-11-06] MEDS ORDERED: cefTRIAXone 2 GM in Sodium Chloride 0.9% 100 ML IV ONE (20:00)
[2019-11-06] MEDS ORDERED: Sodium Chloride 0.9% 10 ML Syringe FLUSH PRN (20:00)
--- NOTE | 2019-11-06 20:05 | EDM.PDOC ---
ED HPI GENERAL MEDICAL PROBLEM - General Chief Complaint: Lower Extremity Injury/Pain Stated Complaint: RIGHT LEG SWOLLEN Time Seen by Provider: 11/06/19 19:43 Source of Information: Reports: Patient, RN Notes Reviewed History Limitations: Reports: No Limitations - History of Present Illness INITIAL COMMENTS - FREE TEXT/NARRATIVE: Patient is a 29-year-old male who presents to the ED for the evaluation of a swollen and reddened right leg. Patient notes he was playing softball Th evening last week, when he slid into second base, and ended up with a very large abrasion on his right lower extremity. This does measure roughly 17 cm x 10 cm in dimension. The area of erythema extends 2 to 3 cm past these borders. He states that he has been cleaning this at home with soapy water, and using triple antibiotic ointment and a bandage for management. 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 He states that it is very painful to bear weight, and also to bend the knee much at all. He did appreciate that the right leg was more swollen than compared to his left leg over the last day or so. He has not complained of any fever/chills, nausea/vomiting/diarrhea, chest pain, shortness of breath/cough. He notes that the wound is weeping a little bit, but does not notice any pus like drainage coming from the wound. Area is very tender to the touch as well. Right Lower Leg Pain Score (Numeric/FACES): 5 - Related Data Allergies Allergy/AdvReac Type Severity Reaction Status Date / Time bee stings Allergy Anaphylactic Uncoded 11/06/19 19:44 Shock Home Meds: Home Meds Fish Oil/[place]-3 Fatty Acids [Fish Oil] 1 cap PO DAILY 12/12/17 [History] Multivitamin [Multivitamins] 1 tab PO DAILY 12/12/17 [History] Doxycycline [Vibramycin] 100 mg PO BID #14 tab 11/06/19 [Rx] Past Medical History Respiratory History: Reports: Asthma, Sleep Apnea Gastrointestinal History: Reports: Celiac Disease Genitourinary History: Reports: Renal Calculus Musculoskeletal History: Reports: Fracture Other Musculoskeletal History: Thumb, arm, fingers Neurological History: Reports: Concussion Endocrine/Metabolic History: Reports: Obesity/BMI 30+ - Past Surgical History HEENT Surgical History: Reports: Oral Surgery, Tonsillectomy Musculoskeletal Surgical History: Reports: Other (See Below) Other Musculoskeletal Surgeries/Procedures:: ACL, MCL, Meniscus repairs Social & Family History - Tobacco Use Smoking Status *Q: Never Smoker - Caffeine Use Caffeine Use: Reports: Soda - Recreational Drug Use Recreational Drug Use: No - Living Situation & Occupation Living situation: Reports: Single, with Significant Other (Girlfriend) 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 ED EXAM, GENERAL - Physical Exam Exam: See Below Exam Limited By: No Limitations General Appearance: Alert, WD/WN, No Apparent Distress Respiratory/Chest: No Respiratory Distress, Lungs Clear, Normal Breath Sounds, No Accessory Muscle Use, Chest Non-Tender Cardiovascular: Normal Peripheral Pulses, Regular Rate, Rhythm, No Murmur Peripheral Pulses: 3+: Dorsalis Pedis (L), Dorsalis Pedis (R) Extremities: Normal Range of Motion, Normal Capillary Refill, Increased Warmth, Redness Neurological: Alert, Oriented, Normal Cognition, No Motor/Sensory Deficits Psychiatric: Normal Affect, Normal Mood Skin Exam: Warm, Dry, Erythema (Erythema extends 2 to 3 cm past the border of the abrasion on the right lower outer extremity), Increased Warmth (To right lower outer extremity), Wound/Incision (Skin abrasion, noted to be 17 x 10 cm in measurement. No active bleeding, there is mild amount of serous fluid weeping from areas.) Course - Vital Signs Last Recorded V/S: Last Vital Signs Temp 98.7 F 11/06/19 19:42 Pulse 82 11/06/19 19:42 Resp 16 11/06/19 19:42 BP 131/92 H 11/06/19 19:42 Pulse Ox 99 11/06/19 19:42 - Orders/Labs/Meds Orders: Active Orders 24 hr Category Date Time Status Peripheral IV Care [RC] . DIRECTED Care 11/06/19 20:00 Active Sodium Chloride 0.9% [Saline Flush] Med 11/06/19 20:00 Active 10 ml FLUSH ASDIRECTED PRN Peripheral IV Insertion Adult [OM.PC] Routine Oth 11/06/19 20:00 Ordered Medication Orders Sodium Chloride (Saline Flush) 10 ml FLUSH ASDIRECTED PRN PRN Reason: Keep Vein Open Last Admin: 11/06/19 20:09 Dose: 10 ml Documented by: SEDA Meds: Medications Generic Name Dose Route Start Last Admin Trade Name Britni PRN Reason Stop Dose Admin Sodium Chloride 10 ml 11/06/19 20:00 11/06/19 20:09 Saline Flush FLUSH 10 ml ASDIRECTED PRN Administration Keep Vein Open Discontinued Medications Generic Name Dose Route Start Last Admin Trade Name Britni PRN Reason Stop Dose Admin Ceftriaxone Sodium 2 gm/ 100 mls @ 200 mls/hr 11/06/19 20:00 11/06/19 20:09 Sodium Chloride IV 11/06/19 20:29 200 mls/hr ONETIME ONE Administration - Re-Assessments/Exams Free Text/Narrative Re-Assessment/Exam: 11/06/19 20:06 Patient presents to the ED for evaluation of his red and swollen right lower extremity. Patient does have a rather large skin abrasion, with erythema noted around it, consistent with cellulitis. Patient will be given a dose of IV Rocephin, and oral prescription for doxycycline on outpatient basis, he will be given a few days off of work to help alleviate some of the swelling and pain. He will be given other general recommendations and discharged home after his IV antibiotics are done. Departure - Departure Time of Disposition: 20:37 Disposition: Home, Self-Care 01 Condition: Good Clinical Impression: Cellulitis Qualifiers: Site of cellulitis: extremity Site of cellulitis of extremity: lower extremity Laterality: right Qualified Code(s): L03.115 - Cellulitis of right lower limb Abrasion of leg Qualifiers: Encounter type: initial encounter Laterality: right Qualified Code(s): S80.811A - Abrasion, right lower leg, initial encounter - Discharge Information *PRESCRIPTION DRUG MONITORING PROGRAM REVIEWED*: No *COPY OF PRESCRIPTION DRUG MONITORING REPORT IN PATIENT LAURA: No Prescriptions: Doxycycline [Vibramycin] 100 mg PO BID #14 tab Instructions: Cellulitis, Adult, [id number] Referrals: Dorys Jamil PA-C [Primary Care Provider] - Forms: ED Department Discharge, ED Return to Work/School Form Additional Instructions: You were evaluated in the ER today regarding your swollen/reddened right lower leg. It does appear that you have a cellulitis. Your skin was marked around the borders of the redness, if this redness should extend 2 finger widths past this initial sandeep, recommend you seek care for re-evaluation. You were given a antibiotic, doxycycline 100mg, please take as prescribed until the course is done or told otherwise by different provider. Please note that this antibiotic will take at least 48 hours to start working appropriately. You were however given a dose of IV antibiotics in the ER to start management. You may try to use heat/ice packs to the area to help reduce pain/swelling. Recommend you try to elevate the leg as much as possible to help alleviate some of the swelling, you may try Robert wraps, for compression as well for further pain relief. You may take 500 mg Tylenol or 600 mg ibuprofen every 6 hours as needed for further pain relief. Do not exceed 4000 mg Tylenol or 3200 mg ibuprofen in a 24-hour time span. Please return to the ER at any time if your symptoms change or worsen. Sepsis Event Note (ED) - Evaluation Sepsis Screening Result: No Definite Risk - Focused Exam Vital Signs: Vital Signs Temp Pulse Resp BP Pulse Ox 11/06/19 19:42 98.7 F 82 16 131/92 H 99 - My Orders Last 24 Hours: My Active Orders 11/06/19 20:00 Peripheral IV Care [RC] . DIRECTED Sodium Chloride 0.9% [Saline Flush] 10 ml FLUSH ASDIRECTED PRN Peripheral IV Insertion Adult [OM.PC] Routine - Assessment/Plan Last 24 Hours: My Active Orders 11/06/19 20:00 Peripheral IV Care [RC] . DIRECTED Sodium Chloride 0.9% [Saline Flush] 10 ml FLUSH ASDIRECTED PRN Peripheral IV Insertion Adult [OM.PC] Routine
== END 2019-11-06 20:50 | disposition home or self-care (01) ==
LOC: JD.ED 19:28
DX: S80.811A Abrasion, right lower leg, initial encounter (principal); L03.115 Cellulitis of right lower limb; J45.909 Unspecified asthma, uncomplicated; E66.9 Obesity, unspecified; Z68.35 Body mass index [BMI] 35.0-35.9, adult; Z91.030 Bee allergy status; W26.8XXA Contact with other sharp object(s), not elsewhere classified, initial encounter
CPT/HCPCS: 96365; 99283; J0696; J7050

== ENCOUNTER 2021-03-04 02:13 | Emergency (ER) | payer BC ==
[2021-03-04 02:25] VITALS: BP 133/93; PULSE 89
--- NOTE | 2021-03-04 02:49 | EDM.PDOC ---
ED HPI GENERAL MEDICAL PROBLEM - General Chief Complaint: ENT Problem Stated Complaint: DYSPHAGIA Time Seen by Provider: 03/04/21 02:30 Source of Information: Reports: Patient History Limitations: Reports: No Limitations - History of Present Illness INITIAL COMMENTS - FREE TEXT/NARRATIVE: The patient presents with a sore throat. He went to bed feeling fine. He woke up about midnight with some pain and swelling to the right side of his throat. He woke up a couple hours later and it was worse. He has a history of a pharyngeal abscess and needed surgery a few years ago. He has no fever, chills, cough, or runny nose. He has no chest pain, shortness of breath, abdominal pain, nausea or vomiting. Onset: Gradual Duration: Hour(s): Location: Reports: Other (throat) Quality: Reports: Sharp Severity: Moderate Improves with: Reports: None Worsens with: Reports: None Associated Symptoms: Reports: No Other Symptoms Right Throat Pain Score (Numeric/FACES): 5 - Related Data Allergies Allergy/AdvReac Type Severity Reaction Status Date / Time bee stings Allergy Anaphylactic Uncoded 03/04/21 02:25 Shock Home Meds: Home Meds Fish Oil/[place]-3 Fatty Acids [Fish Oil] 1 cap PO DAILY 12/12/17 [History] Multivitamin [Multivitamins] 1 tab PO DAILY 12/12/17 [History] Doxycycline [Vibramycin] 100 mg PO BID #14 tab 11/06/19 [Rx] Amoxicillin 875 mg PO BID #20 tab 03/04/21 [Rx] Past Medical History - Past Health History Medical/Surgical History: Denies Medical/Surgical History Cardiovascular History: Reports: None Respiratory History: Reports: Asthma, Sleep Apnea Gastrointestinal History: Reports: Celiac Disease Genitourinary History: Reports: Renal Calculus [employer] History: Reports: None Musculoskeletal History: Reports: Fracture Other Musculoskeletal History: Thumb, arm, fingers Neurological History: Reports: Concussion Psychiatric History: Reports: None Endocrine/Metabolic History: Reports: Obesity/BMI 30+ Hematologic History: Reports: None Immunologic History: Reports: None Oncologic (Cancer) History: Reports: None Dermatologic History: Reports: None - Past Surgical History Head Surgeries/Procedures: Reports: None HEENT Surgical History: Reports: Oral Surgery, Tonsillectomy Cardiovascular Surgical History: Reports: None Respiratory Surgical History: Reports: None GI Surgical History: Reports: None Male Surgical History: Reports: None Endocrine Surgical History: Reports: None Neurological Surgical History: Reports: None Musculoskeletal Surgical History: Reports: Other (See Below) Other Musculoskeletal Surgeries/Procedures:: ACL, MCL, Meniscus repairs Oncologic Surgical History: Reports: None Dermatological Surgical History: Reports: None Social & Family History - Tobacco Use Tobacco Use Status *Q: Never Tobacco User - Caffeine Use Caffeine Use: Reports: Soda - Living Situation & Occupation Living situation: Reports: Single, with Significant Other (Girlfriend) 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[email or web address]) ED ROS ENT - Review of Systems Review Of Systems: See Below Constitutional: Reports: No Symptoms HEENT: Reports: Throat Pain Respiratory: Reports: No Symptoms Cardiovascular: Reports: No Symptoms Endocrine: Reports: No Symptoms GI/Abdominal: Reports: No Symptoms : Reports: No Symptoms Musculoskeletal: Reports: No Symptoms ED EXAM, ENT - Physical Exam Exam: See Below Exam Limited By: No Limitations General Appearance: Alert, No Apparent Distress Ears: Normal External Exam Nose: Normal Inspection Mouth/Throat: Tonsillar Erythema (with mild edema) Head: Atraumatic, Normocephalic Neck: Normal Inspection, Supple, Non-Tender Respiratory/Chest: No Respiratory Distress, Lungs Clear, Normal Breath Sounds Cardiovascular: Regular Rate, Rhythm, No Edema, No Murmur GI/Abdominal: Soft, Non-Tender, No Organomegaly, No Mass Back: Normal Inspection Extremities: Normal Inspection Course - Vital Signs Last Recorded V/S: Last Vital Signs Temp 97.9 F 03/04/21 02:22 Pulse 89 03/04/21 02:22 Resp 16 03/04/21 02:22 BP 133/93 H 03/04/21 02:22 Pulse Ox 97 03/04/21 02:22 - Orders/Labs/Meds Labs: Laboratory Tests 03/04/21 03/04/21 Range/Units 02:45 02:45 Influenza Type A RNA Negative (NEGATIVE) Influenza Type B RNA Negative (NEGATIVE) SARS-CoV-2 RNA ([place]) Negative (NEGATIVE) Group A Strep (PCR) Not detected (NOT DETECT) - Re-Assessments/Exams Free Text/Narrative Re-Assessment/Exam: 03/04/21 02:48 I ordered a strep, flu and COVID 19. 03/04/21 03:50 The influenza, strep and COVID are all negative. I will get him on amoxicillin to avoid the abscess he had in the past. Departure - Departure Time of Disposition: 03:55 Disposition: Home, Self-Care 01 Condition: Good Clinical Impression: Pharyngitis Qualifiers: Pharyngitis/tonsillitis etiology: other specified organisms Qualified Code(s): J02.8 - Acute pharyngitis due to other specified organisms - Discharge Information *PRESCRIPTION DRUG MONITORING PROGRAM REVIEWED*: Not Applicable *COPY OF PRESCRIPTION DRUG MONITORING REPORT IN PATIENT LAURA: Not Applicable Prescriptions: Amoxicillin 875 mg PO BID #20 tab Referrals: Dorys Jamil PA-C [Primary Care Provider] - Forms: ED Department Discharge, ED Return to Work/School Form Additional Instructions: Drink plenty of fluids. Take tylenol or motrin as needed for pain or fever. Take amoxicillin 2 times per day for 10 days. Please return if you are worse. Sepsis Event Note (ED) - Evaluation Sepsis Screening Result: No Definite Risk - Focused Exam Vital Signs: Vital Signs Temp Pulse Resp BP Pulse Ox 03/04/21 02:22 97.9 F 89 16 133/93 H 97
[2021-03-04 03:25] LABS: CORONAVIRUS COVID-19 NAA NEGATIVE (NEGATIVE)
== END 2021-03-04 04:01 | disposition home or self-care (01) ==
LOC: JD.ED 02:13
DX: J02.8 Acute pharyngitis due to other specified organisms (principal); Z20.822 Contact with and (suspected) exposure to COVID-19; E66.9 Obesity, unspecified; Z68.34 Body mass index [BMI] 34.0-34.9, adult
CPT/HCPCS: 0240U; 87651; 99283

== ENCOUNTER 2023-06-09 07:43 | Day surgery (SDC) | payer BC, OTHER ==
[~2023-06-09 07:43] MED LIST changes: -Dexamethasone 4 MG/ML 5 ML MDV ONE; -Ketorolac 30 MG/ML SDV ONE; -Lactated Ringers 1,000 ML IV SCH; -Lactated Ringers 1,000 ML ONE; -Lidocaine 1% 4 ML ONE; -Lidocaine 1%/Sod Bicarbonate in NS 8.4% 1 ML Syringe IDERM PRN; -Midazolam 1 MG/ML 2 ML SDV ONE; -Ondansetron 4 MG/2 ML SDV ONE; -Propofol 200 MG/20 ML SDV ONE; +Sodium Chloride 0.9% 10 ML Syringe FLUSH SCH; -ceFAZolin 1 GM Vial ONE; -fentaNYL 250 MCG/5 ML SDV ONE
[2023-06-09] MEDS: Lactated Ringers 1,000 ML IV SCH (08:15)
[2023-06-09] MEDS ORDERED: Propofol 200 MG/20 ML SDV ONE ×3 (09:30→10:09)
[2023-06-09] MEDS ORDERED: Lidocaine 2% 5 ML SDV ONE (09:30)
[2023-06-09] MEDS: Ketorolac 30 MG/ML SDV IVPUSH ONE (11:14)
[2023-06-09] MEDS: Acetaminophen/Butalbital/Caffeine 325-50-40 MG Tab PO ONE (11:15)
[2023-06-09 12:00] VITALS: BP 127/86; PULSE 91
== END 2023-06-09 11:45 | disposition home or self-care (01) ==
LOC: JD.SDS 07:43
PROVIDERS: ATTEND Surgery
DX: D12.3 Benign neoplasm of transverse colon (principal); K29.51 Unspecified chronic gastritis with bleeding; K29.80 Duodenitis without bleeding; K21.00 Gastro-esophageal reflux disease with esophagitis, without bleeding; J45.909 Unspecified asthma, uncomplicated; K52.9 Noninfective gastroenteritis and colitis, unspecified
CPT/HCPCS: 43239; 45380; A9270; J1885; J2704; J7120; 00813; J3490